=== PATIENT | male | born 1960 | race Two or more races ===

== ENCOUNTER 2022-03-18 22:41 | Emergency (ER) | payer SELFPAY ==
[~2022-03-18] VITALS: Ht 162.6 cm; Wt 88.6 kg
[2022-03-18] MEDS ORDERED: PRED20TA PO (23:11)
[2022-03-18] MEDS ORDERED: PEG15DRO14 RIGHTEYE (23:11)
[2022-03-18] MEDS ORDERED: VALA10008 PO (23:11)
--- NOTE | 2022-03-18 23:11 | PHYS DOC ---
Past Medical History Past Surgical History: Coronary Bypass Surgery General Adult EDM: Chief Complaint: EYE PROBLEMS HPI: HPI: Patient is a 61 year old M who presents with right sided face paralysis starting this morning, gradually worsening, now associated with difficulty closing his R eye as well as drooling from R side of mouth. Patient denies any extremity weakness, dizziness, vomiting, rash, difficulty with speech. Review of Systems: Review of Systems: Constitutional: Denies fever or chills. [] Eyes: Denies change in visual acuity. [] HENT: Denies nasal congestion or sore throat. [] Respiratory: Denies cough or shortness of breath. [] Cardiovascular: Denies chest pain or edema. [] GI: Denies abdominal pain, nausea, vomiting, bloody stools or diarrhea. [] : Denies dysuria. [] Musculoskeletal: Denies back pain or joint pain. [] Integument: Denies rash. [] Neurologic: Denies headache or extremity weakness, does report change in taste the past two days. [] Endocrine: Denies polyuria or polydipsia. [] Lymphatic: Denies swollen glands. [] Psychiatric: Denies depression or anxiety. [] Heart Score: C/O Chest Pain: No Risk Factors: Risk Factors: DM, Current or recent (<one month) smoker, HTN, HLP, family history of CAD, obesity. Risk Scores: Score 0 - 3: 2.5% MACE over next 6 weeks - Discharge Home Score 4 - 6: 20.3% MACE over next 6 weeks - Admit for Clinical Observation Score 7 - 10: 72.7% MACE over next 6 weeks - Early Invasive Strategies Allergies: Allergies: Allergies Coded Allergies Type Severity Reaction Last Updated Verified No Known Drug Allergies 03/18/22 No Physical Exam: PE: Constitutional: Well developed, well nourished, no acute distress, non-toxic appearance. [] HENT: Normocephalic, atraumatic, bilateral external ears normal, oropharynx moist, no oral exudates, nose normal. [] Eyes: PERRLA, EOMI, conjunctiva normal, no discharge. [] Neck: Normal range of motion, no tenderness, supple, no stridor. [] Cardiovascular:Heart rate regular rhythm, no murmur [] Lungs & Thorax: Bilateral breath sounds clear to auscultation [] Abdomen: Bowel sounds normal, soft, no tenderness, no masses, no pulsatile masses. [] Skin: Warm, dry, no erythema, no rash. [] Back: No tenderness, no CVA tenderness. [] Extremities: No tenderness, no cyanosis, no clubbing, ROM intact, no edema. [] Neurologic: Alert and oriented X 3, R forehead, cheek and mouth with decreased ROM. Patient reports normal sensation to touch. Psychologic: Affect normal, judgement normal, mood normal. [] Current Patient Data: Vital Signs: Vital Signs Date Time Temp Pulse Resp B/P (MAP) Pulse Ox O2 Delivery O2 Flow Rate FiO2 03/18/22 22:58 98.2 90 20 171/81 (111) 97 Room Air 98.2 EKG: EKG: [] Radiology/Procedures: Radiology/Procedures: [] Course & Med Decision Making: Course & Med Decision Making Patient presents with right-sided facial paralysis extending from forehead through mouth, onset was over several hours, not associated with any other strokelike symptoms. Clinically suspect Renner's palsy, does not have any atypical features to raise concerns for possible stroke or other acute neurologic syndrome. Patient will be started on prednisone and valacyclovir as well as given instructions on how to care for his right eye as it does not fully close at this time. Patient educated about the possibility of hyperglycemia while on the prednisone and will need to follow-up closely with his primary doctor for good glycemic control as well as referral to an farm mechanic in case he is having further issues with the eye. Patient also be prescribed ar tificial tears to help keep the eye moist and instructed to buy an eye shield to wear at night. Jose Juan Disclaimer: Jose Juan Disclaimer: This electronic medical record was generated, in whole or in part, using a voice recognition dictation system. Departure Departure Impression: Primary Impression: Renner's palsy Disposition: 01 HOME / SELF CARE / HOMELESS Condition: STABLE Patient Instructions: Renner's Palsy-Brief Scripts Peg 400/Hypromellose/Glycerin (ARTIFICIAL TEARS DROPS) 15 Ml Drops 1 DROP RIGHTEYE Q2HR for 30 Days, ML 0 Refills Prov: DANIELE RENNER MD 03/18/22 Valacyclovir Hcl (VALACYCLOVIR) 1,000 Mg Tablet 1 TAB PO TID for 7 Days, #21 TAB Prov: DANIELE RENNER MD 03/18/22 Prednisone (PREDNISONE) 20 Mg Tablet 80 MG PO DAILY for 7 Days, #28 TAB Prov: DANIELE RENNER MD 03/18/22 DANIELE RENNER MD March 18, 2022 23:11
[2022-03-18] MEDS ORDERED: valACYclovir 500 MG TABLET. PO STA (23:15)
[2022-03-18] MEDS ORDERED: predniSONE 20 MG TABLET PO ONE (23:15)
[2022-03-18 23:18] VITALS: BP 134/68
== END 2022-03-19 00:18 | disposition home or self-care (01) ==
LOC: ER 22:41
DX: G51.0 Bell's palsy (principal); Z95.1 Presence of aortocoronary bypass graft
CPT/HCPCS: 99283; J7512